=== PATIENT | female | born 2000 | race Two or more races ===

== ENCOUNTER 2023-02-07 06:54 | Emergency (ER) | payer OTHER ==
[~2023-02-07] VITALS: Ht 152.4 cm; Wt 54.4 kg
[2023-02-07] MEDS ORDERED: ESCITALOPRAM OX20 MG PO (07:27)
[2023-02-07] MEDS ORDERED: VISTARIL25 MG (07:27)
== END 2023-02-07 13:11 | disposition home or self-care (01) ==
LOC: ER 06:54
DX: K52.89 Other specified noninfective gastroenteritis and colitis (principal); A08.8 Other specified intestinal infections; R11.10 Vomiting, unspecified; Z88.0 Allergy status to penicillin; Z91.018 Allergy to other foods